=== PATIENT | male | born 1990 | race Two or more races ===

== ENCOUNTER 2024-11-12 05:57 | Day surgery (SDC) | payer OTHER, SELFPAY ==
[2024-11-12] VITALS (8 sets, daily range): BP systolic 102–127; BP diastolic 61–81; BMI 30.6
[2024-11-12] MEDS: TYLENOL 1000 MG PO (06:18)
[2024-11-12] MEDS: NORMOSOL-R/PLASMALYTE-A 1000 IV (06:44)
[2024-11-12] MEDS: SUBLIMAZE 25 MCG IV (09:23)
== END 2024-11-12 10:07 | disposition home or self-care (01) ==
LOC: SDS 05:57
PROVIDERS: ATTENDING PHYSICIAN Surgery
DX: L05.91 Pilonidal cyst without abscess (principal); L05.01 Pilonidal cyst with abscess
CPT/HCPCS: 11771; 88304